=== PATIENT | female | born 1950 | race Caucasian/White ===

== ENCOUNTER 2019-08-04 10:19 | Outpatient (CLI) | payer MEDICARE, BC | END 2019-08-04 10:20 | disposition home or self-care (01) | LOC: LABBT 10:19 | PROVIDERS: ATTEND Obstetrics & Gynecology | DX: Z01.818 Encounter for other preprocedural examination (principal); N81.4 Uterovaginal prolapse, unspecified | CPT/HCPCS: 93005; 93010 ==

== ENCOUNTER 2019-08-06 09:33 | Day surgery (SDC) | payer MEDICARE, BC ==
[2019-07-25 09:48] VITALS: BMI 25.7
[2019-08-04 16:53] LABS: Hemoglobin 12.7 g/dL (12.0-16.0); Mean Corpuscular HGB CONC 33.4 g/dL (32.0-36.0); Mean Corpuscular Hemoglobin 32.6 pg (27.0-31.0); Mean Corpuscular Volume 97.6 fL (78.0-98.0); Platelet Count 314 thou/uL (130-400); RBC Distribution Width 12.2 % (11.5-14.5); White Blood Cell (WBC) Count 6.6 thou/uL (4.8-10.8)
[2019-08-04 17:26] LABS: Anion Gap 6 mmol/L (10-20); BUN (Urea Nitrogen) 15 mg/dL (9.8-20.1); Calc. Creatinine Clearance 0 mL/min (70-130); Calcium 9.6 mg/dL (7.8-10.44); Carbon Dioxide 30 mmol/L (23-31); Chloride 103 mmol/L (98-107); Estimated GFR-MDRD 65; Glucose 109 mg/dL (80-115); Potassium 3.1 mmol/L (3.5-5.1); Sodium 136 mmol/L (136-145)
--- NOTE | 2019-08-06 06:48 | HP ---
REASON FOR ADMISSION: Uterine prolapse with symptomatic cystocele and rectocele. SCHEDULED PROCEDURE: Total laparoscopic hysterectomy with uterosacral ligament vaginal vault suspension, and anterior and posterior repair with possible cystoscopy. HISTORY OF PRESENT ILLNESS: Ms. Rod is a 69-year-old 4, para 2, AB 2, who has been my patient for many years. She has had progressively worsening and progressively symptomatic uterovaginal prolapse with cystocele and rectocele. The patient states she desires definitive surgical management secondary to pelvic pressure and the need to splint to defecate. She denies incontinence. DIRECTOR OF AGRICULTURE HISTORY: Negative Pap, spontaneous vaginal delivery x2. MEDICAL HISTORY: Significant for osteoarthritis, depressive disease, hyperlipidemia, and hypertension. PAST SURGICAL HISTORY: Significant for knee arthroscopy. ALLERGIES: KEFLEX AND PENICILLINS. MEDICATIONS: 1. Bupropion. 2. . 3. Lisinopril/HCTZ. 4. Meloxicam. 5. Ranitidine. 6. Simvastatin. SOCIAL HISTORY: The patient is a current every day 1/2 to 1 pack per day smoker. Denies significant alcohol use. FAMILY HISTORY: Noncontributory. PHYSICAL EXAMINATION: GENERAL: Reveals white female, 5 feet 9 inches, 172, BMI 25. VITAL SIGNS: Blood pressure 145/94, pulse 63, respirations 18. HEENT: Within normal limits. CHEST: Clear to auscultation bilaterally. HEART: Regular rate and rhythm. BREASTS: Without masses bilaterally. ABDOMEN: Soft, nontender. No rebound. No guarding. GENITOURINARY: Vulva without lesions. Vagina, the patient has a second to third-degree cystocele and rectocele with relatively moist postmenopausal mucosa. Cervix is without lesions and then rest at the introitus without Valsalva. Uterus is small and nontender, but prolapsing. No adnexal masses are noted. Urethra is within normal limits. EXTREMITIES: No clubbing, cyanosis, or edema. IMPRESSION: 1. Uterine prolapse with documented cystocele, rectocele, symptomatic. 2. Tobacco use. PLAN: 1. We will proceed with total laparoscopic hysterectomy, bilateral salpingo-oophorectomy, uterosacral ligament vault suspension, anterior and posterior repair, and possible cystoscopy. The patient understands the risks and benefits of procedure. We will administer appropriate penicillin-allergic antibiotic prophylaxis and DVT prophylaxis with SCDs. 2. Tobacco abuse. Importance of decreasing or eliminating tobacco use prior to surgery was emphasized with the patient. Increased morbidity associated with tobacco use with any surgical procedure was explained to the patient. Will ambulate as early as reasonable and request the bedside incentive spirometry as well. Job ID: [id number]
[2019-08-06] MEDS ORDERED: Rocuronium Bromide 10 MG/ML (10ML VIAL) ONE (09:41)
[2019-08-06] MEDS ORDERED: Glycopyrrolate 0.2 MG/ML 5 ML SYRINGE ONE (09:41)
[2019-08-06] MEDS ORDERED: Dexamethasone 20 MG/5 ML VIAL ONE (09:41)
[2019-08-06] MEDS ORDERED: Lidocaine 1% PF 5 ML VIAL ONE (09:41)
[2019-08-06] MEDS ORDERED: ePHEDrine/0.9% NaCl/PF SYRINGE 50 mg/10 ml ONE (09:41)
[2019-08-06] MEDS ORDERED: PROPOFOL 200 MG/20 ML VIAL ONE (09:41)
[2019-08-06] MEDS ORDERED: Ondansetron PF 4 MG/2 ML Vial ONE (09:41)
[2019-08-06] MEDS ORDERED: Levofloxacin 500 mg/D5W 100 ml Premix Bag ONE (10:19)
[2019-08-06] MEDS ORDERED: Gabapentin 300 MG CAP ONE (10:19)
[2019-08-06] MEDS ORDERED: Clindamycin/D5W 900 mg/50 ml Premix Bag ONE (10:19)
[2019-08-06] MEDS ORDERED: CeleCOXIB 100 MG CAP ONE (10:19)
[2019-08-06] MEDS ORDERED: Famotidine/PF 20 mg/2ml Vial ONE ×2 (10:19→11:42)
[2019-08-06] MEDS ORDERED: Lidocaine 1% w/Epinephrine 1:100K 20 ML VIAL ONE (10:58)
[2019-08-06] MEDS ORDERED: Bupivacaine PF 0.5% 30 ML VIAL ONE (10:58)
[2019-08-06] MEDS ORDERED: Fentanyl 100 MCG/2 ML VIAL ONE (11:15)
[2019-08-06] MEDS ORDERED: Phenylephrine HCL 10 MG/ML VIAL ONE (11:42)
[2019-08-06] MEDS ORDERED: Promethazine HCl 25 MG/ML VIAL IM PRN ×2 (13:21→14:43)
[2019-08-06] MEDS ORDERED: Meperidine HCl/PF 25 MG/ML VIAL SLOW IVP PRN (13:21)
[2019-08-06] MEDS ORDERED: PACU-Morphine 4MG/ML VIAL SLOW IVP PRN (13:21)
[2019-08-06] MEDS ORDERED: Promethazine HCl 25 MG/ML VIAL SLOW IVP PRN (13:21)
[2019-08-06] MEDS ORDERED: SUGAMMADEX SODIUM 200 MG/2 ML VIAL ONE (14:38)
[2019-08-06] MEDS ORDERED: HYDROcodone/Acetaminophen 5/325 mg Tablet PO PRN ×2 (14:43)
[2019-08-06] MEDS ORDERED: Simethicone Chewable 80 MG TAB PO PRN (14:43)
[2019-08-06] MEDS ORDERED: Ondansetron PF 4 MG/2 ML Vial IVP PRN (14:43)
[2019-08-06] MEDS ORDERED: Zolpidem Tartrate 5 MG TAB PO PRN (14:43)
[2019-08-06] MEDS ORDERED: diphenhydrAMINE 25 MG CAP PO PRN (14:43)
[2019-08-06] MEDS ORDERED: Morphine 4 MG/ML VIAL SLOW IVP PRN (14:43)
--- NOTE | 2019-08-06 16:29 | OP ---
DATE OF PROCEDURE: 08/06/2019 PREOPERATIVE DIAGNOSIS: Uterine prolapse with symptomatic cystocele and rectocele. POSTOPERATIVE DIAGNOSES: Uterine prolapse with symptomatic cystocele and rectocele. Dense scarring of the rectum with old obstetrical laceration at the level of the perineal body. PROCEDURES PERFORMED: Total laparoscopic hysterectomy with da Saurabh assist, bilateral salpingo-oophorectomy, uterosacral ligament and vaginal vault suspension, anterior repair, posterior repair, and repair of incidental rectal mucosal injury intraoperatively. ETHNOLOGY TEACHER: PEREZ Galeas ANESTHESIA: General endotracheal. ESTIMATED BLOOD LOSS: 100 mL. COMPLICATIONS: Incidental rectal injury at perineal body repair. COUNTS: Correct. MEDICATIONS: Levaquin and clindamycin preoperatively and then re-dosed at 8 and 12 hours postoperatively. DVT PROPHYLAXIS: SCDs. DRAINS: Sy to gravity with clear urine. OPERATIVE FINDINGS: 1. Small uterus with third-degree prolapse to the introitus. 2. Normal-appearing tubes and ovaries bilaterally. 3. Ureters identified on the patient's right and exploration revealed them to be extremely left on the patient's left away from the uterosacral ligament vault suspension. 4. Cystocele reduced. 5. Rectocele partially reduced. 6. Primary repair of 1 cm rectal injury at the level of perineum. DISPOSITION: Recovery room in good condition. DESCRIPTION OF PROCEDURE: After obtaining appropriate informed consent, the patient was taken to the operating room where general endotracheal anesthesia was achieved without difficulty, prepped and draped in dorsal lithotomy in Vasyl stirrups. Cervix was identified, noted to be an introitus. Uterus sounded to 8 cm. YOHAN manipulator with a 6 cm obturator and 4 cm vaginal profile saw operator were placed without difficulty. Sy was placed. Bladder drained of clear urine. Mail Order Sorter changed his gloves, turned attention to abdominal portion of the procedure. A 5 mL of Marcaine was injected in the inferior aspect the umbilicus and a 12-mm skin incision was made, Veress needle was placed inside the abdominal cavity. Insufflation was carried out with carbon dioxide at max pressure of 15, volume approximately 3.5 L. A 12-mm noncutting Lizett trocar was placed with Arrieta balloon and confirmation of entry into the peritoneal cavity without trauma to the underlying viscera was noted. The right and left lateral da Saurabh trocars were placed under direct visualization as well as an 11-mm marketing support assistant port in the right upper quadrant. The patient was placed in steep Trendelenburg and da Saurabh docked with monopolar scissors in right hand and bipolar fenestrated forceps in the left. Findings as noted in the operative findings were noted. Of note, the patient had extremely attenuated uterosacral ligaments bilaterally. These were very difficult to identify. On the right, the patient's ureter was easily identified and an incision in the peritoneum made between the level of the uterosacral ligament and the ureter laterally. This was to facilitate ureterolysis on the patient's left. The ureter could not be reliably identified in the retroperitoneum. However, incision was made just along the immediate lateral border of the uterosacral ligament and referencing known anatomy was noted to be well medial to the ureter again for ureterolysis. After this was done, the attention was turned to the hysterectomy. The left infundibulopelvic ligament was identified, coagulated, and transected through the broad and the round, down to the level of the internal cervical os. The vesicouterine peritoneum was incised sharply along the lower uterine segment, dissecting the bladder off the cervix and upper vagina. The bladder was backfilled to confirm its location and noted to be well away from the operative field. Uterine vessels were skeletonized on the patient's left and coagulated and transected. Attention was turned to the patient's right, where the identical procedure was carried out, coagulating and transecting the infundibulopelvic ligament, the broad, the round, and down to the level of the internal cervical os. Uterine vessels were skeletonized, coagulated and transected. Further inspection revealed that the bladder being completely dissected off the cervix and upper vagina. The vagina was entered anteriorly at 12 o'clock and extended from 12 o'clock to 3 o'clock and 12 o'clock to 9 o'clock, and then from 3 to 6 and 9 to 6 amputating the specimen, was pulled into the vagina to maintain pneumoperitoneum. Suction irrigation was carried out. Good hemostasis was noted. The cuff was closed using a running continuous 2-0 Stratafix PDS in a running continuous manner from right to left and back to right. After this was done, the vagina was elevated and 2-0 Ethibonds were introduced on the patient's right. The uterosacral ligament remnants were whipstitched on the medial side and then carried along the peritoneum of the posterior cul-de-sac up to the level of the vaginal cuff, incorporating the right apex of the cuff to the middle and then back to the uterosacral ligament on the right. This was tied down elevating the right corner of the vagina. Attention was turned to the left, where identical procedure was carried out on that side. Because of very patulous rectum posteriorly and very thin tissue, decision was made not to place a Ball culdoplasty suture. The ureter was identified on the right and noted to be well lateral and no evidence of kinking, again while the ureters could not be visualized retroperitoneally on the left, considering the location of the ureterolysis incision through the peritoneum, it was not felt that there was any evidence or chance of kinking the ureter on the patient's left. The pelvis was suction irrigated, noted to be hemostatic and Torie applied across all surgical diane. Da Saurabh instrument was removed, da Saurabh undocked. Abdomen was desufflated of carbon dioxide. Trocars were removed x4. Fascia was reapproximated at the umbilicus using 0 Vicryl suture and skin was reapproximated x4 using 4-0 Monocryl and Dermabond. Attention was turned to the vagina. The patient's legs were rotated up. Good vaginal apex elevation was noted. Cystocele was noted and reduced from second and third degree to first to second-degree anteriorly, approximately 4 cm segment of the anterior vagina was isolated, injected the midline with lidocaine and epinephrine and incised sharply with a 15-blade. Blunt and sharp dissection were carried out in the vesicovaginal area and then the fascia was plicated using horizontal mattress sutures of 0 Vicryl. Good elevation and plication were noted and the mucosa was reapproximated using a running locking 2-0 chromic suture. Posteriorly, the patient was noted to have quite a scarred perineal body. The patient had a significant rectocele that was also felt to involve enterocele to some degree. It was grasped along the midline and infiltrated. The perineal body was wedged and Metzenbaums were used staying in the midline to incise the mucosa avoiding the rectum posteriorly. This was carried up about 4 cm above the level of the introitus. Blunt and sharp dissection were carried down on each side and the available fascia to plicate high was plicated together using 0 Vicryl suture. Once this was done, a 2-0 Vicryl was used in a running locking manner down the mucosa. At the level of the perineal body, efforts to dissect laterally to rebuild the perineal body immediately led to an approximately 1 cm incision in the rectum that was scarred up very close to the level of the perineal body. It was immediately recognized and isolated along its length, which was approximately 1 cm. It was suctioned and irrigated out. Rectovaginal exam confirmed this and confirmed no other rectal injury. Dr. Whitaker was consulted intraoperatively and recommended primary closure with 3-0 chromic, which was carried out by myself. With his watching, we did a running continuous primary mucosal closure and then reapproximated the muscularis over that. Area was copiously suction irrigated and then the vaginal mucosa at the level of perineum was reapproximated over. Further attempts at dissecting out the perineum and rebuilding it were not carried out secondary to the injury. The perineal skin was reapproximated using a subcuticular of 2-0 Vicryl. Inspection of all pedicles revealed them to be dry and a moist Kerlix sponge was placed in the vagina for vaginal pack. The patient was awakened and extubated to recovery room in good condition. The vaginal pack and Sy will be removed in the a.m. Secondary dosing of antibiotics because of rectal injury as noted. We will place the patient on Colace 100 p.o. b.i.d. x30 days. Job ID: [id number]
[2019-08-06] MEDS: Sodium Chloride 0.9% 1,000 ML IV SCH (16:30)
[2019-08-06] MEDS ORDERED: Clindamycin/D5W 900 MG in Premix Bag 1 BAG IVPB SCH (18:00)
[2019-08-06] MEDS: Ketorolac Tromethamine 30 MG/ML VIAL IVP SCH (18:28)
[2019-08-06] MEDS: Famotidine 20 MG TAB PO SCH (20:48)
[2019-08-06] MEDS: Docusate 100 MG CAP PO SCH (20:48)
[2019-08-06] MEDS ORDERED: Atorvastatin Calcium 40 MG TAB PO SCH (21:00)
[2019-08-07] MEDS: Ketorolac Tromethamine 30 MG/ML VIAL IVP SCH (00:35)
[2019-08-07] MEDS: Sodium Chloride 0.9% 1,000 ML IV SCH ×3 (00:35→09:35)
[2019-08-07] MEDS ORDERED: Ibuprofen 800 MG TAB PO SCH (06:00)
[2019-08-07] MEDS ORDERED: Nicotine 21 MG PATCH TD SCH (06:00)
[2019-08-07 06:01] LABS: Hemoglobin 11.9 g/dL (12.0-16.0); Mean Corpuscular HGB CONC 33.7 g/dL (32.0-36.0); Mean Corpuscular Hemoglobin 33.3 pg (27.0-31.0); Mean Corpuscular Volume 98.9 fL (78.0-98.0); Mean Platelet Volume 6.9 fL (7.4-10.4); Platelet Count 316 thou/uL (130-400); RBC Distribution Width 12.3 % (11.5-14.5); Red Blood Cell (RBC) Count 3.59 mill/uL (4.20-5.40)
[2019-08-07] MEDS ORDERED: Bupropion 150 MG XL TAB PO SCH (09:00)
[2019-08-07] MEDS ORDERED: Lisinopril/Hydrochlorothiazide 20 mg/12.5 mg Tablet PO SCH (09:00)
[2019-08-07] MEDS ORDERED: Amlodipine 5 MG TAB PO SCH (09:00)
[2019-08-07] MEDS ORDERED: Escitalopram Oxalate 20 mg Tablet PO SCH (09:00)
[2019-08-07] MEDS: Docusate 100 MG CAP PO SCH (09:24)
[2019-08-07] MEDS: Famotidine 20 MG TAB PO SCH (09:26)
[2019-08-07 11:29] VITALS: BP 128/59; TEMP 98.6
--- NOTE | 2019-08-07 13:09 | DIS ---
DATE OF ADMISSION: 08/06/2019 DATE OF DISCHARGE: 08/07/2019 TIME OF SERVICE: 12:45. PRIMARY AND HOSPITAL PROCEDURE: Total laparoscopic hysterectomy, bilateral salpingo-oophorectomy, uterosacral ligament and vaginal vault suspension, anterior repair, posterior repair, incidental rectal injury, perineorrhaphy. SUMMARY OF HOSPITAL COURSE: The patient underwent the aforementioned procedure on the afternoon of 08/06. She had minimal blood loss. Postoperative day, hematocrit went from 38% preoperatively to 35.5% postoperatively, platelet count remained stable at 316. T-max 98.9, temperature 98.6, pulse 75, respirations 20, blood pressure 128/59. The patient states she has minimal, if any pain. Denies rectal pain. Denies nausea, vomiting. PHYSICAL EXAMINATION: LUNGS: Clear to auscultation bilaterally. HEART: Regular rhythm. ABDOMEN: Soft, nontender, and nondistended. Incisions intact x4. Perineum dry. EXTREMITIES: Without clubbing, cyanosis, or edema. : The patient is voiding with ease. Urine output postoperatively was 2100 mL by Sy and the patient has voided several times this morning. The patient will be discharged home. Discharge medications of Schroeder and ibuprofen were called out preoperatively. The patient was instructed to take a stool softener, Colace, or Susan-Colace b.i.d. for 30 days, and the patient states she will do this with [id number] medication. She has scheduled followup at [facility] and ER precautions for postoperative complications. The importance of ambulation and smoking cessation or decrease in amount was emphasized with the patient. She will restart all of her presurgical medications. Job ID: [id number]
[2019-08-07] MEDS ORDERED: Aspirin 81 mg Enteric Coated Tablet PO SCH (21:00)
== END 2019-08-07 13:15 | disposition home or self-care (01) ==
LOC: SDC 09:33 → 3SE 16:32 → SDC 08-07 13:15
PROVIDERS: ATTEND Obstetrics & Gynecology
PROC: 0UT94ZZ Resection of Uterus, Percutaneous Endoscopic Approach (ICD-10-PCS; principal; 2019-08-06)
PROC: 0UT24ZZ Resection of Bilateral Ovaries, Percutaneous Endoscopic Approach (ICD-10-PCS; 2019-08-06)
PROC: 0UT74ZZ Resection of Bilateral Fallopian Tubes, Percutaneous Endoscopic Approach (ICD-10-PCS; 2019-08-06)
PROC: 0JQC0ZZ Repair Pelvic Region Subcutaneous Tissue and Fascia, Open Approach (ICD-10-PCS; 2019-08-06)
PROC: 0JQC0ZZ Repair Pelvic Region Subcutaneous Tissue and Fascia, Open Approach (ICD-10-PCS; 2019-08-06)
DX: N81.3 Complete uterovaginal prolapse (principal); N80.0 Endometriosis of uterus; D25.9 Leiomyoma of uterus, unspecified; N83.8 Other noninflammatory disorders of ovary, fallopian tube and broad ligament; N88.8 Other specified noninflammatory disorders of cervix uteri; K91.81 Other intraoperative complications of digestive system; M19.90 Unspecified osteoarthritis, unspecified site; F32.9 Major depressive disorder, single episode, unspecified; E78.5 Hyperlipidemia, unspecified; I10 Essential (primary) hypertension; F17.210 Nicotine dependence, cigarettes, uncomplicated; Z79.1 Long term (current) use of non-steroidal anti-inflammatories (NSAID); Z79.82 Long term (current) use of aspirin; Z79.899 Other long term (current) drug therapy; Z88.0 Allergy status to penicillin; Z88.1 Allergy status to other antibiotic agents
CPT/HCPCS: 36415; 80048; 85027; 86850; 86900; 86901; 88307; J1100; J1885; J1956; J2001; J2370; J2405; J2704; J3010; J3490; S0020; S0028

== ENCOUNTER 2022-03-22 13:35 | Inpatient (IN) | payer MEDICARE, BC ==
[2022-03-22] MEDS ORDERED: Morphine 4 MG/ML VIAL ONE (14:43)
[2022-03-22] MEDS ORDERED: Ondansetron PF 4 MG/2 ML Vial ONE (14:43)
[2022-03-22 15:15] LABS: #Eosinphils 0.1 thou/uL (0.0-0.7); #Lymphocytes 0.7 thou/uL (1.20-3.40); #Monocytes 0.6 thou/uL (0.11-0.59); %Basophils 0.1 % (0.0-1.0); %Eosinophils 0.8 % (0.0-10.0); %Lymphocytes 5.4 % (21.0-51.0); %Monocytes 4.3 % (0.0-10.0); %Neutrophils 89.4 % (42.0-75.0); Hemoglobin 12.5 g/dL (12.0-16.0); Mean Corpuscular HGB CONC 32.9 g/dL (32.0-36.0); Mean Corpuscular Hemoglobin 31.9 pg (27.0-31.0); Mean Corpuscular Volume 96.9 fL (78.0-98.0); Mean Platelet Volume 6.3 fL (7.4-10.4); Platelet Count 396 thou/uL (130-400); RBC Distribution Width 12.3 % (11.5-14.5); Red Blood Cell (RBC) Count 3.91 mill/uL (4.20-5.40); White Blood Cell (WBC) Count 13.5 thou/uL (4.8-10.8)
[2022-03-22 15:33] LABS: INR-International Normal Ratio 0.9; Prothrombin Time 12.3 sec (12.0-14.7)
[2022-03-22] MEDS ORDERED: Promethazine HCl 25 MG/ML VIAL IM PRN (15:33)
[2022-03-22] MEDS ORDERED: TETANUS, DIPHTHERIA TOX,ADULT (TDVAX) 0.5 ML VIAL IM ONE (15:33)
[2022-03-22] MEDS ORDERED: hydrALAZINE 20 MG/ML VIAL SLOW IVP PRN (15:33)
[2022-03-22] MEDS ORDERED: Ondansetron PF 4 MG/2 ML Vial IVP PRN (15:33)
[2022-03-22 15:34] LABS: PTT 26.5 sec (22.9-36.1)
[2022-03-22 15:42] LABS: ALT (SGPT) 13 U/L (8-55); AST (SGOT) 20 U/L (5-34); Albumin 4.1 g/dL (3.4-4.8); Alkaline Phosphatase 75 U/L (40-110); Anion Gap 14 mmol/L (10-20); BUN (Urea Nitrogen) 10 mg/dL (9.8-20.1); Bilirubin, Total 0.6 mg/dL (0.2-1.2); Calc. Creatinine Clearance 0 mL/min (70-130); Calcium 9.8 mg/dL (7.8-10.44); Carbon Dioxide 24 mmol/L (23-31); Chloride 102 mmol/L (98-107); Estimated GFR 72; Globulin 2.8 g/dL (2.4-3.5); Glucose 87 mg/dL (83-110); Potassium 3.1 mmol/L (3.5-5.1); Protein, Total 6.9 g/dL (5.8-8.1); Sodium 137 mmol/L (136-145)
[2022-03-22] MEDS ORDERED: Potassium Chloride 20 MEQ TAB PO SCH (16:15)
[2022-03-22] MEDS: Morphine 2 MG/ML VIAL SLOW IVP PRN (20:19)
[2022-03-22] MEDS: Famotidine/PF 20 mg/2ml Vial SLOW IVP SCH (20:20)
[2022-03-22] MEDS: Sodium Chloride 0.9% 1,000 ML IV SCH ×2 (20:20→23:49)
[2022-03-22 20:38] VITALS: BMI 243.7
[2022-03-22] MEDS: Acetaminophen 325 MG TAB PO SCH ×2 (20:57→23:43)
[2022-03-22 21:06] LABS: Bacteria/HPF 2+ HPF (None Seen); Bilirubin Negative (Negative); Blood, Urine Negative (Negative); Clarity Clear (Clear); Glucose, Urine (Dipstick) Normal (Negative); Ketone, Urine Trace mg/dL (Negative); Leukocyte Negative Leu/uL (Negative); Nitrite 1+ (Negative); Protein, Urine (Dipstick) Negative (Neg-Trace); RBC/HPF 0-3 HPF (0-3); Specific Gravity, Urine 1.011 (1.002-1.036); Squamous Epithelial 0-3 HPF (0-3); Urobilinogen Normal mg/dL (Less than 2); WBC/HPF 0-3 HPF (0-3)
[2022-03-22 21:08] LABS: Urine Culture Reflex Yes Yes
[2022-03-22] MEDS: Acetaminophen 500 MG TAB PO SCH (23:50)
[2022-03-23] MEDS: Morphine 2 MG/ML VIAL SLOW IVP PRN ×2 (04:46→10:46)
[2022-03-23] MEDS ORDERED: Acetaminophen/Codeine 30-300mg Tablet PO SCH ×2 (05:00→12:15)
[2022-03-23 05:48] LABS: #Eosinphils 0.3 thou/uL (0.0-0.7); #Lymphocytes 1.1 thou/uL (1.20-3.40); #Monocytes 0.7 thou/uL (0.11-0.59); #Neutrophils 5.4 thou/uL (1.40-6.50); %Basophils 0.5 % (0.0-1.0); %Lymphocytes 14.2 % (21.0-51.0); %Monocytes 9.1 % (0.0-10.0); %Neutrophils 72.2 % (42.0-75.0); Hemoglobin 11.7 g/dL (12.0-16.0); Mean Corpuscular HGB CONC 32.6 g/dL (32.0-36.0); Mean Corpuscular Hemoglobin 32.1 pg (27.0-31.0); Mean Corpuscular Volume 98.5 fL (78.0-98.0); Mean Platelet Volume 6.4 fL (7.4-10.4); Platelet Count 330 thou/uL (130-400); RBC Distribution Width 12.3 % (11.5-14.5); Red Blood Cell (RBC) Count 3.66 mill/uL (4.20-5.40); White Blood Cell (WBC) Count 7.5 thou/uL (4.8-10.8)
[2022-03-23 06:02] LABS: INR-International Normal Ratio 0.9; Prothrombin Time 12.6 sec (12.0-14.7)
[2022-03-23 06:03] LABS: PTT 28.6 sec (22.9-36.1)
[2022-03-23 06:07] LABS: Anion Gap 13 mmol/L (10-20); BUN (Urea Nitrogen) 9 mg/dL (9.8-20.1); Calc. Creatinine Clearance 750 mL/min (70-130); Calcium 8.7 mg/dL (7.8-10.44); Carbon Dioxide 24 mmol/L (23-31); Chloride 106 mmol/L (98-107); Estimated GFR 80; Glucose 86 mg/dL (83-110); Sodium 139 mmol/L (136-145)
[2022-03-23] MEDS: Acetaminophen 500 MG TAB PO SCH (06:34)
[2022-03-23 08:20] LABS: SARS-CoV-2 NAA Rapid Test Not Detected (NotDetected)
[2022-03-23] MEDS: Sodium Chloride 0.9% 1,000 ML IV SCH ×2 (09:46→17:56)
[2022-03-23] MEDS: Famotidine/PF 20 mg/2ml Vial SLOW IVP SCH ×2 (10:46→22:21)
[2022-03-23] MEDS: Bupropion 150 MG XL TAB PO SCH (11:53)
[2022-03-23] MEDS: Amlodipine 5 MG TAB PO SCH (11:53)
[2022-03-23] MEDS: Escitalopram Oxalate 20 mg Tablet PO SCH (11:53)
[2022-03-23] MEDS ORDERED: Ketorolac Tromethamine 30 MG/ML VIAL IVP SCH (12:00)
[2022-03-23] MEDS: Ketorolac Tromethamine 30 MG/ML VIAL IVP SCH ×2 (12:27→19:15)
[2022-03-23] MEDS: Acetaminophen 325 MG TAB PO SCH ×2 (12:30→19:15)
[2022-03-23] MEDS ORDERED: Levofloxacin 500 mg/D5W 100 ml Premix Bag ONE (13:00)
[2022-03-23] MEDS ORDERED: fentaNYL Citrate/PF 100 MCG/2 ML SYRINGE ONE (14:15)
[2022-03-23] MEDS ORDERED: Clindamycin/D5W 900 mg/50 ml Premix Bag ONE (14:21)
[2022-03-23] MEDS ORDERED: ePHEDrine 50 MG/ML VIAL ONE (14:36)
[2022-03-23] MEDS ORDERED: Dexamethasone 20 MG/5 ML VIAL ONE (14:36)
[2022-03-23] MEDS ORDERED: Ondansetron PF 4 MG/2 ML Vial ONE (14:36)
[2022-03-23] MEDS ORDERED: Rocuronium Bromide 10 MG/ML (10ML VIAL) ONE (14:36)
[2022-03-23] MEDS ORDERED: PROPOFOL 200 MG/20 ML VIAL ONE (14:36)
[2022-03-23] MEDS ORDERED: Lidocaine 1% MPF 2 ML VIAL ONE (14:36)
[2022-03-23] MEDS ORDERED: SUGAMMADEX SODIUM 200 MG/2 ML VIAL ONE (15:28)
[2022-03-23] MEDS ORDERED: Promethazine HCl 25 MG/ML VIAL IM PRN (15:50)
[2022-03-23] MEDS ORDERED: Ondansetron HCl/PF 4 MG/2 ML Vial IVP PRN (15:50)
[2022-03-23] MEDS ORDERED: Promethazine HCl 25 MG/ML VIAL IVPB PRN (15:50)
[2022-03-23] MEDS ORDERED: Fentanyl 100 MCG/2 ML VIAL ONE (16:14)
[2022-03-23] MEDS: Acetaminophen/Codeine 30-300mg Tablet PO SCH ×2 (17:56→22:19)
[2022-03-23] MEDS: Clindamycin/D5W 900 MG in Premix Bag 1 BAG IVPB SCH (22:21)
[2022-03-23] MEDS: Atorvastatin Calcium 40 MG TAB PO SCH (22:21)
[2022-03-24] MEDS: Acetaminophen 325 MG TAB PO SCH ×4 (02:38→17:10)
[2022-03-24] MEDS: Ketorolac Tromethamine 30 MG/ML VIAL IVP SCH (02:38)
[2022-03-24] MEDS: Acetaminophen/Codeine 30-300mg Tablet PO SCH ×4 (03:59→20:46)
[2022-03-24 05:43] LABS: #Lymphocytes 0.7 thou/uL (1.20-3.40); #Neutrophils 8.3 thou/uL (1.40-6.50); %Basophils 0.1 % (0.0-1.0); %Lymphocytes 7.4 % (21.0-51.0); %Monocytes 9.6 % (0.0-10.0); %Neutrophils 82.9 % (42.0-75.0); Hemoglobin 10.2 g/dL (12.0-16.0); Mean Corpuscular HGB CONC 32.7 g/dL (32.0-36.0); Mean Corpuscular Hemoglobin 32.2 pg (27.0-31.0); Mean Corpuscular Volume 98.6 fL (78.0-98.0); Mean Platelet Volume 6.7 fL (7.4-10.4); Platelet Count 304 thou/uL (130-400); RBC Distribution Width 12.3 % (11.5-14.5); Red Blood Cell (RBC) Count 3.15 mill/uL (4.20-5.40)
[2022-03-24] MEDS: Clindamycin/D5W 900 MG in Premix Bag 1 BAG IVPB SCH (06:24)
[2022-03-24] MEDS: Amlodipine 5 MG TAB PO SCH (08:11)
[2022-03-24] MEDS: Bupropion 150 MG XL TAB PO SCH (08:11)
[2022-03-24] MEDS: Famotidine/PF 20 mg/2ml Vial SLOW IVP SCH ×2 (08:11→20:48)
[2022-03-24] MEDS: Escitalopram Oxalate 20 mg Tablet PO SCH (08:12)
[2022-03-24] MEDS: Aspirin 81 mg Enteric Coated Tablet PO SCH ×2 (08:13→20:47)
[2022-03-24] MEDS ORDERED: Ibuprofen 200 MG TAB PO PRN (09:39)
[2022-03-24] MEDS ORDERED: Clindamycin/D5W 900 MG in Premix Bag 1 BAG IVPB SCH (12:30)
[2022-03-24] MEDS: Cyclobenzaprine 10 MG TAB PO PRN ×2 (14:04→20:45)
[2022-03-24] MEDS: Atorvastatin Calcium 40 MG TAB PO SCH (20:47)
[2022-03-24] MEDS: Senokot S 8.6-50 MG TAB PO SCH (20:47)
[2022-03-25] MEDS: Acetaminophen 325 MG TAB PO SCH ×4 (01:10→17:35)
[2022-03-25] MEDS: Acetaminophen/Codeine 30-300mg Tablet PO SCH ×3 (04:02→14:35)
[2022-03-25 06:33] LABS: #Eosinphils 0.2 thou/uL (0.0-0.7); #Neutrophils 7.3 thou/uL (1.40-6.50); %Basophils 0.4 % (0.0-1.0); %Eosinophils 1.8 % (0.0-10.0); %Lymphocytes 10.6 % (21.0-51.0); %Monocytes 10.2 % (0.0-10.0); Hemoglobin 10.6 g/dL (12.0-16.0); Mean Corpuscular HGB CONC 32.5 g/dL (32.0-36.0); Mean Corpuscular Hemoglobin 32.1 pg (27.0-31.0); Mean Corpuscular Volume 98.7 fL (78.0-98.0); Mean Platelet Volume 6.8 fL (7.4-10.4); Platelet Count 306 thou/uL (130-400); RBC Distribution Width 12.3 % (11.5-14.5); White Blood Cell (WBC) Count 9.4 thou/uL (4.8-10.8)
[2022-03-25 06:56] LABS: Anion Gap 11 mmol/L (10-20); BUN (Urea Nitrogen) 9 mg/dL (9.8-20.1); Calc. Creatinine Clearance 78 mL/min (70-130); Calcium 8.6 mg/dL (7.8-10.44); Carbon Dioxide 28 mmol/L (23-31); Chloride 103 mmol/L (98-107); Estimated GFR 86; Glucose 111 mg/dL (83-110); Magnesium 1.4 mg/dL (1.6-2.6); Potassium 3.9 mmol/L (3.5-5.1); Sodium 138 mmol/L (136-145)
[2022-03-25] MEDS ORDERED: Magnesium Sulfate In Water 4 GM in Premix Bag 1 BAG IVPB SCH (08:45)
[2022-03-25] MEDS ORDERED: Sodium Phosphate 30 MMOL in Sodium Chloride 0.9% 250 ML 250 ML IVPB SCH (08:45)
[2022-03-25] MEDS ORDERED: Polyethylene Glycol 3350 17 GM Packet PO SCH (09:00)
[2022-03-25] MEDS ORDERED: Lisinopril/Hydrochlorothiazide 20 mg/12.5 mg Tablet PO SCH (09:00)
[2022-03-25] MEDS: Bupropion 150 MG XL TAB PO SCH (10:00)
[2022-03-25] MEDS: Aspirin 81 mg Enteric Coated Tablet PO SCH (10:00)
[2022-03-25] MEDS: Escitalopram Oxalate 20 mg Tablet PO SCH (10:00)
[2022-03-25] MEDS: Amlodipine 5 MG TAB PO SCH (10:00)
[2022-03-25] MEDS: Senokot S 8.6-50 MG TAB PO SCH (10:01)
[2022-03-25 15:44] VITALS: BP 132/72; TEMP 99.2
== END 2022-03-25 18:10 | disposition swing bed (61) | DRG 522 ==
LOC: ERS 13:35 → SURG A 15:39
PROVIDERS: ADMIT Surgery; ATTEND Surgery
PROC: 0SRS0JA Replacement of Left Hip Joint, Femoral Surface with Synthetic Substitute, Uncemented, Open Approach (ICD-10-PCS; principal; 2022-03-23)
DX: S72.012A Unspecified intracapsular fracture of left femur, initial encounter for closed fracture (principal); Z20.822 Contact with and (suspected) exposure to COVID-19; I10 Essential (primary) hypertension; E87.6 Hypokalemia; M19.90 Unspecified osteoarthritis, unspecified site; W18.31XA Fall on same level due to stepping on an object, initial encounter; Z79.899 Other long term (current) drug therapy; Z90.710 Acquired absence of both cervix and uterus; Z88.0 Allergy status to penicillin; Z88.8 Allergy status to other drugs, medicaments and biological substances; Z87.891 Personal history of nicotine dependence
CPT/HCPCS: 36415; 71045; 72170; 80048; 80053; 81001; 83735; 84100; 85025; 85610; 85730; 86850; 86900; 86901; 87086; 90714; 93005; 96374; 96375; C1713; C1776; G0390; J1100; J1885; J1956; J2270; J2405; J2704; J3010; J3475; J3490; J7050; S0028; U0002; U0003; U0005

== ENCOUNTER 2024-05-13 09:26 | Outpatient (CLI) | payer MEDICARE, BC | END 2024-05-13 09:27 | disposition home or self-care (01) | LOC: BICMAMMO 09:26 | PROVIDERS: ATTEND Student in an Organized Health Care Education/Training Program | DX: N63.23 Unspecified lump in the left breast, lower outer quadrant (principal); N64.89 Other specified disorders of breast | CPT/HCPCS: 76642; 77066; G0279 ==